=== PATIENT | male | born 1970 | race Caucasian/White ===

== ENCOUNTER 2016-09-20 15:48 | Inpatient (IN) | payer SELFPAY ==
[~2016-09-20 15:48] MED LIST: CIPR500T2 PO; Z.0.NO CURRENT MEDS
[2016-09-20 15:50] VITALS: BP 138/86; PULSE 102; RESP 24; TEMP 98.1; O2SAT 100
--- NOTE | 2016-09-20 16:18 | PD ---
Physical Exam Date Seen by Provider: Sep 20, 2016 Time Seen by Provider: 16:06 Narrative 45 y/o male with [address] with Right Sided Tonsillar Abscess refered here due to worsening symptoms. Patient having Difficulty speaking and handling his own secretions. Patient sent straight back to [facility] Bed. Data Data Last Documented VS Vital Signs Date Time Temp Pulse Resp B/P Pulse Ox O2 Delivery O2 Flow Rate FiO2 09/20/16 15:50 98.1 102 24 138/86 100 MDM Medical Record Reviewed: Yes Supervised Visit with SAMANTHA: Yes Condition: Stable Micha Bo Sep 20, 2016 16:18
[2016-09-20] MEDS ORDERED: ONDANSETRON HCL 4 MG/2 ML VIAL IVP ONE (16:45)
[2016-09-20] MEDS ORDERED: AMPICILLIN-SULBACTAM INJ 3 GM in SODIUM CHLORIDE 0.9% INJ 100 ML IV ONE (16:45)
[2016-09-20] MEDS ORDERED: SODIUM CHLORIDE 0.9% FLUSH 10 ML FLUSH IV FLUSH PRN ×2 (16:45→21:15)
[2016-09-20] MEDS ORDERED: MORPHINE SULFATE 4 MG/ML INJ IV PUSH ONE ×2 (16:45→19:00)
[2016-09-20] MEDS ORDERED: SODIUM CHLOR 0.9% 1000 ML INJ 1,000 ML IV SCH (16:45)
--- NOTE | 2016-09-20 17:05 | PD ---
HPI Chief Complaint: Oral / Dental Pain or Problem Time Seen by Provider: 17:00 Travel History International Travel<30 days: No Contact w/Intl Traveler<30days: No Traveled to known affect area: No History of Present Illness HPI Patient comes in complaining of sharp stabbing throat pain ongoing for 5 days more the right than left. Denies any radiation of pain. Pain is worse with swallowing. Denies any nausea, vomiting, chest pain, shortness breath, headache , ear pain, or being around anyone else with similar. Patient states he occasionally has issues with his tonsil swelling on him, but usually not this bad. Patient is been taking ibuprofen for symptom relief. Patient feels symptoms have been getting worse. Patient denies seeing anyone else for this. [facility] Past Medical History Asthma: Yes Kidney Stones: Yes Influenza Vaccination: No Past Surgical History Surgical History: No Previous Surgery Social History Alcohol Use: No Tobacco Use: No Substance Use: No Allergies-Medications (Allergen,Severity, Reaction): Coded Allergies: No Known Allergies (Unverified , 09/20/16) Reported Meds & Prescriptions Reported Meds & Active Scripts Active No Active Prescriptions or Reported Medications Review of Systems Except as stated in HPI: all other systems reviewed are Neg Physical Exam Narrative GENERAL: Well-developed, well nourished, in no acute distress, and non-ill appearing. SKIN: Focused skin assessment warm and dry. HEAD: Atraumatic. Normocephalic. EYES: Pupils equal and round. EOMI. No scleral icterus. No injection or drainage. ENT: No nasal bleeding or discharge. Mucous membranes pink and moist. Voice is muffled. Patient's able swallow saliva. Right tonsil is swollen greater than the left. Uvula is deviated to the left. There is no drooling. Tympanic membranes are pearly delgado bilaterally. NECK: Trachea midline. Cervical lymphadenopathy noted. Supple. No nuclear rigidity. CARDIOVASCULAR: Regular rate and rhythm. No murmur appreciated. RESPIRATORY: No accessory muscle use. No respiratory distress. Clear to auscultation. Breath sounds equal bilaterally. MUSCULOSKELETAL: No obvious deformities. No clubbing. No cyanosis. No edema. Full range of motion. NEUROLOGICAL: Awake and alert. No obvious cranial nerve deficits. Motor grossly within normal limits. Normal speech. PSYCHIATRIC: Appropriate mood and affect; insight and judgment normal. Data Data Last Documented VS Vital Signs Date Time Temp Pulse Resp B/P Pulse Ox O2 Delivery O2 Flow Rate FiO2 09/20/16 19:23 89 20 191/85 98 Room Air 09/20/16 15:50 98.1 Orders Basic Metabolic Panel (Bmp) (09/20/16 16:45) Complete Blood Count With Diff (09/20/16 16:45) Prothrombin Time / Inr (Pt) (09/20/16 16:45) Act Partial Throm Time (Ptt) (09/20/16 16:45) Iv Access Insert/Monitor (09/20/16 16:45) Ecg Monitoring (09/20/16 16:45) Oximetry (09/20/16 16:45) Morphine Inj (Morphine Inj) (09/20/16 16:45) Ondansetron Inj (Zofran Inj) (09/20/16 16:45) Ampicillin-Sulbactam Inj (Unasyn Inj) (09/20/16 16:45) Sodium Chlor 0.9% 1000 Ml Inj (Ns 1000 M (09/20/16 16:45) Sodium Chloride 0.9% Flush (Ns Flush) (09/20/16 16:45) Ct Soft Tiss Neck W Iv Cont (09/20/16 ) Iohexol 350 Inj (Omnipaque 350 Inj) (09/20/16 17:20) Dexamethasone Inj (Decadron Inj) (09/20/16 19:00) Morphine Inj (Morphine Inj) (09/20/16 19:00) Admit Order (Ed Use Only) (09/20/16 21:06) Consult Ent (09/20/16 ) Place In Observation (09/20/16 ) Vital Signs (Adult) Q4H (09/20/16 21:05) Activity Oob Ad Debra (09/20/16 21:05) Stockroom Supervisor / Telemetry .CONTINUOUS (09/20/16 21:05) Diet Clear Liquid (09/21/16 Breakfast) Sodium Chloride 0.9% Flush (Ns Flush) (09/20/16 21:15) Sodium Chloride 0.9% Flush (Ns Flush) (09/21/16 09:00) Basic Metabolic Panel (Bmp) (09/21/16 06:00) Creatine Kinase (Cpk) (09/20/16 21:05) Creatine Kinase (Cpk) (09/21/16 03:05) Case Management Consult (09/20/16 21:05) Naloxone Inj (Narcan Inj) (09/20/16 21:15) Clindamycin Inj (Cleocin Inj) (09/20/16 22:00) Lactobacillus Acidophilus (Lactinex) (09/21/16 09:00) Ampicillin-Sulbactam Inj (Unasyn Inj) (09/20/16 23:00) Labs Laboratory Tests Test 09/20/16 09/20/16 18:25 19:10 White Blood Count 18.2 TH/MM3 Red Blood Count 5.32 MIL/MM3 Hemoglobin 15.7 GM/DL Hematocrit 44.6 % Mean Corpuscular Volume 83.8 FL Mean Corpuscular Hemoglobin 29.5 PG Mean Corpuscular Hemoglobin 35.2 % Concent Red Cell Distribution Width 13.2 % Platelet Count 417 TH/MM3 Mean Platelet Volume 6.8 FL Neutrophils (%) (Auto) 71.5 % Lymphocytes (%) (Auto) 13.7 % Monocytes (%) (Auto) 13.0 % Eosinophils (%) (Auto) 1.1 % Basophils (%) (Auto) 0.7 % Neutrophils # (Auto) 13.0 TH/MM3 Lymphocytes # (Auto) 2.5 TH/MM3 Monocytes # (Auto) 2.4 TH/MM3 Eosinophils # (Auto) 0.2 TH/MM3 Basophils # (Auto) 0.1 TH/MM3 CBC Comment AUTO DIFF Differential Total Cells 100 Counted Neutrophils % (Manual) 73 % Lymphocytes % 13 % Monocytes % 12 % Eosinophils % 1 % Basophils % 1 % Neutrophils # (Manual) 13.3 TH/MM3 Nucleated Red Blood Cells 1 /100 WBC Differential Comment FINAL DIFF MANUAL Platelet Estimate NORMAL Platelet Morphology Comment NORMAL Sodium Level 136 MEQ/L Potassium Level 4.1 MEQ/L Chloride Level 100 MEQ/L Carbon Dioxide Level 23.9 MEQ/L Anion Gap 12 MEQ/L Blood Urea Nitrogen 16 MG/DL Creatinine 1.07 MG/DL Estimat Glomerular Filtration 75 ML/MIN Rate Random Glucose 71 MG/DL Calcium Level 9.4 MG/DL Prothrombin Time 11.3 SEC Prothromb Time International 1.0 RATIO Ratio Activated Partial 30.8 SEC Thromboplast Time MDM Medical Decision Making Medical Screen Exam Complete: Yes Emergency Medical Condition: Yes Interpretation(s) CT soft tissue neck read by the radiologist: 1. Extensive soft tissue swelling and inflammation involving the right side of the nasopharynx, oropharynx and hypopharyngeal soft tissues. 2. Enlarged tonsils with suspected developing abscess beneath the right tonsil. 3. Bilateral internal jugular lymphadenopathy. 4. Considering the patient's age close clinical followup to exclude malignancy is recommended. Differential Diagnosis Peritonsillar abscess, peritonsillar cellulitis, retropharyngeal abscess, other Narrative Course Patient was seen and examined. IV was established and placed on cardiac telemetry. Initial laboratory and radiological studies were ordered and reviewed. Patient was given a dose of Unasyn IV, IV Zofran, IV morphine, and IV Decadron. Discussed all findings and plan of care with Dr. Adames, who is in agreement with plan of care and disposition. Discussed all findings and plan care of patient, who was agreeable for admission. All questions were answered. Discussed patient with ENT who felt if the patient has no leukocytosis showed be safe for outpatient follow-up. However secondary to leukocytosis patient be admitted for early peritonsillar abscess. Discussed patient with hospitalist who is agreeable to admit the patient. Patient remained stable throughout ED course. Physician Communication Physician Communication [address] Thomas, ENT on-call, who recommends if there is no leukocytosis this is likely not a peritonsillar abscess and can follow-up with his office tomorrow. However, if patient is admitted he can be consult by hospitalist. [id number] Abernathy, who is agreeable to admit the patient. Diagnosis Primary Impression: Peritonsillar abscess Additional Impression: Lymphadenopathy Admitting Information Admitting Physician Requests: Observation Scripts No Active Prescriptions or Reported Meds Condition: Stable Jim Thomas Sep 20, 2016 17:05
[2016-09-20] MEDS ORDERED: IOHEXOL 350 MG/ML 10 ML VIAL (for RAD DIAG) IV ONE (17:20)
[2016-09-20] MEDS ORDERED: DEXAMETHASONE SOD PHOS 4 MG/ML VIAL IV PUSH ONE (19:00)
--- NOTE | 2016-09-20 19:01 | RADRPT ---
EXAM DATE/TIME: 09/20/2016 17:12 [facility] COMPARISON: No previous studies available for comparison. INDICATIONS : Oral abscess, difficulty swallowing. IV CONTRAST: 86 cc Omnipaque 350 (iohexol) IV RADIATION DOSE: 19.46 CTDIvol (mGy) MEDICAL HISTORY : asthma SURGICAL HISTORY : None. ENCOUNTER: Initial ACUITY: 1 week PAIN SCALE: 10/10 LOCATION: face TECHNIQUE: Volumetric scanning of the neck was performed. Using automated exposure control and adjustment of th e mA and/or kV according to patient size, radiation dose was kept as low as reasonably achievable to obtain optimal diagnostic quality images. DICOM format image data is available electronically for r eview and comparison. FINDINGS: Significant right sided nasopharyngeal, oropharyngeal and tonsillar soft tissue swelling is noted. A 1.9 cm poorly defined radiolucency is identified deep to the right tonsil. The soft tissue swelling extends into the right hypopharyngeal region. The right supraglottic soft ti ssues are thickened and the right piriform sinus has been obliterated. Enlarged lymph nodes are seen bilaterally in the internal jugular chains with the largest nodes noted superior to the hyoid bone. The lymph nodes range in size up to 2.2 cm. The right submandibular gland appears mildly enlarged. Laryngeal structures are otherwise intact. Several ethmoid air cells are opacified. Orbits are intact. There is no evidence of intracranial abnormality. The prevertebral soft tissues are unremarkable. CONCLUSION: 1. Extensive soft tissue swelling and inflammation involving the right side of the nasopharynx, oroph arynx and hypopharyngeal soft tissues. 2. Enlarged tonsils with suspected developing abscess beneath the right tonsil. 3. Bilateral internal jugular lymphadenopathy. 4. Considering the patient's age close clinical followup to exclude malignancy is recommended. Sigifredo Florence MD on September 20, 2016 at 18:50 Board Certified Radiologist. This report was verified electronically.
[2016-09-20 19:05] LABS: BICARBONATE 23.9 MEQ/L (21.0-32.0)
[2016-09-20 19:06] LABS: POTASSIUM 4.1 MEQ/L (3.5-5.1)
[2016-09-20 19:23] VITALS: BP 191/85; PULSE 89; RESP 20; O2SAT 98
[2016-09-20 19:39] LABS: BASOPHIL # 0.1 TH/MM3 (0-0.2); BASOPHIL % 0.7 % (0.0-2.0); EOSINOPHIL # 0.2 TH/MM3 (0-0.4); EOSINOPHIL % 1.1 % (0.0-4.0); HEMATOCRIT 44.6 % (39.0-51.0); LYMPH % 13.7 % (9.0-44.0); LYMPHOCYTE # 2.5 TH/MM3 (1.0-4.8); MEAN CELL VOLUME 83.8 FL (80.0-100.0); MEAN CORPUSCULAR HEMOGLOBIN 29.5 PG (27.0-34.0); MEAN CORPUSCULAR HGB CONC 35.2 % (32.0-36.0); NEUT % 71.5 % (16.0-70.0); PLATELET COUNT 417 TH/MM3 (150-450); RED BLOOD COUNT 5.32 MIL/MM3 (4.50-5.90); RED CELL DISTRIBUTION WIDTH 13.2 % (11.6-17.2); WHITE BLOOD COUNT 18.2 TH/MM3 (4.0-11.0)
[2016-09-20 19:41] LABS: HEMO FLAGS AUTO DIFF
[2016-09-20 19:51] LABS: APTT (PATIENT) 30.8 SEC (24.3-30.1); PROTHROMBIN TIME - PATIENT 11.3 SEC (9.8-11.6)
[2016-09-20 20:04] LABS: BASOPHILS 1 % (0-2); CORRECTED NUCLEATED RBC 1 /100 WBC (0-0); EOSINOPHILS 1 % (0-4); NEUTROPHIL # MANUAL DIFF 13.3 TH/MM3 (1.8-7.7); PLATELET ESTIMATE SMEAR NORMAL (NORMAL); PLATELET MORPHOLOGY NORMAL (NORMAL); POLYS (SEG NEUTROPHILS) 73 % (16-70); SCAN/DIFF FINAL DIFF MANUAL; WBC DIFF SAMPLE 100
[2016-09-20] MEDS ORDERED: NALOXONE HCL 0.4 MG/ML AMP IV PRN (21:15)
[2016-09-20] MEDS: CLINDAMYCIN INJ 900 MG in SODIUM CHLORIDE 0.9% INJ 100 ML IV SCH (21:45)
[2016-09-20 22:04] VITALS: BP 152/83; PULSE 91; RESP 18; O2SAT 98
[2016-09-20] MEDS: AMPICILLIN-SULBACTAM INJ 3 GM in SODIUM CHLORIDE 0.9% INJ 100 ML IV SCH (22:24)
[2016-09-20 23:58] VITALS: PULSE 91
[2016-09-21] VITALS (10 sets, daily range): BP systolic 129–180; BP diastolic 75–99; PULSE 83–112; RESP 16–20; TEMP 95.7–98.1; O2SAT 95–97
[2016-09-21] MEDS ORDERED: MORPHINE SULFATE 4 MG/ML INJ IV PUSH PRN (01:00)
[2016-09-21] MEDS: AMPICILLIN-SULBACTAM INJ 3 GM in SODIUM CHLORIDE 0.9% INJ 100 ML IV SCH ×4 (04:01→21:29)
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
[2016-09-21] MEDS ORDERED: RESP: ALBUTEROL 2.5 MG/3 ML NEB (PRN) NEB (05:00)
[2016-09-21] MEDS ORDERED: DEXAMETHASONE SOD PHOS 4 MG/ML VIAL IV PUSH SCH (06:00)
[2016-09-21] MEDS: CLINDAMYCIN INJ 900 MG in SODIUM CHLORIDE 0.9% INJ 100 ML IV SCH ×4 (06:00→21:29)
[2016-09-21 08:15] LABS: BICARBONATE 25.3 MEQ/L (21.0-32.0); POTASSIUM 4.1 MEQ/L (3.5-5.1)
[2016-09-21] MEDS: SODIUM CHLORIDE 0.9% FLUSH 10 ML FLUSH IV FLUSH SCH ×2 (09:16→21:29)
[2016-09-21] MEDS: PANTOPRAZOLE SOD 40 MG DELAYED RELEASE TAB PO SCH (09:16)
[2016-09-21] MEDS: LACTOBACILLUS ACIDOPHILUS TAB PO SCH ×3 (09:16→18:36)
[2016-09-21] MEDS: SILVER SULFADIAZINE 1% CR 50 GM JAR TOPICAL SCH ×2 (09:16→21:00)
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
[2016-09-21] MEDS: DEXAMETHASONE SOD PHOS 4 MG/ML VIAL IV PUSH SCH (21:29)
[2016-09-22] VITALS: BP 153/89; PULSE 103; RESP 18; TEMP 98; O2SAT 94
[2016-09-22 04:00] VITALS: BP 139/91; PULSE 86; RESP 18; TEMP 98.2; O2SAT 95
[2016-09-22] MEDS: AMPICILLIN-SULBACTAM INJ 3 GM in SODIUM CHLORIDE 0.9% INJ 100 ML IV SCH ×2 (05:47→09:45)
[2016-09-22] MEDS: CLINDAMYCIN INJ 900 MG in SODIUM CHLORIDE 0.9% INJ 100 ML IV SCH ×2 (05:47→09:51)
[2016-09-22 08:00] VITALS: BP 136/71; PULSE 77; RESP 17; TEMP 96.5; O2SAT 92
[2016-09-22] MEDS ORDERED: amLODIPine BESYLATE 5 MG TAB PO SCH (09:00)
[2016-09-22] MEDS: SODIUM CHLORIDE 0.9% FLUSH 10 ML FLUSH IV FLUSH SCH (09:00)
[2016-09-22] MEDS: DEXAMETHASONE SOD PHOS 4 MG/ML VIAL IV PUSH SCH (09:47)
[2016-09-22] MEDS: PANTOPRAZOLE SOD 40 MG DELAYED RELEASE TAB PO SCH (09:47)
[2016-09-22] MEDS: LACTOBACILLUS ACIDOPHILUS TAB PO SCH (09:47)
[2016-09-22] MEDS ORDERED: MEDR4PAK PO (10:30)
[2016-09-22] MEDS ORDERED: AUGM875T3 PO (10:30)
[2016-09-22] MEDS ORDERED: AMLO5 PO (10:30)
--- NOTE | 2016-09-22 10:36 | HHI.PR ---
Subjective Remarks Follow up for peritonsilar abscess. Patient is doing much better, feels that he is back to his baseline. Denies any chest pain, SOB, fever, chills. Able to tolerate diet well. Objective Vitals Vital Signs Date Time Temp Pulse Resp B/P Pulse Ox O2 Delivery O2 Flow Rate FiO2 09/22/16 08:00 96.5 77 17 136/71 92 09/22/16 04:00 98.2 86 18 139/91 95 09/22/16 00:00 98.0 103 18 153/89 94 09/21/16 18:15 98.1 101 18 141/86 95 09/21/16 16:52 95.7 112 18 129/75 96 09/21/16 16:01 109 09/21/16 13:18 165/97 09/21/16 12:25 91 09/21/16 12:11 96.7 88 16 180/97 96 Result Diagram: 09/20/16 1825 09/21/16 0550 Imaging Last Impressions Neck CT 09/20/16 0000 Signed Impressions: Service Date/Time: Tuesday, September 20, 2016 17:12 - CONCLUSION: 1. Extensive soft tissue swelling and inflammation involving the right side of the nasopharynx, oropharynx and hypopharyngeal soft tissues. 2. Enlarged tonsils with suspected developing abscess beneath the right tonsil. 3. Bilateral internal jugular lymphadenopathy. 4. Considering the patient's age close clinical followup to exclude malignancy is recommended. Sigifredo Florence MD Objective Remarks GENERAL: Alert, Oriented x 3, NAD. SKIN: Warm and dry. HEAD: Normocephalic. EYES: No scleral icterus. No injection or drainage. NECK: Supple, trachea midline. No JVD or lymphadenopathy. Large tonsils kun on the right. No appreciable exudates. Airway intact. CARDIOVASCULAR: Regular rate and rhythm without murmurs, gallops, or rubs. RESPIRATORY: Breath sounds equal bilaterally. No accessory muscle use. GASTROINTESTINAL: Abdomen soft, non-tender, nondistended. MUSCULOSKELETAL: No cyanosis, or edema. BACK: Nontender without obvious deformity. No CVA tenderness. Procedures None. A/P Problem List: (1) Peritonsillar abscess ICD Code: J36 Status: Acute (2) HTN (hypertension) ICD Code: I10 Status: Acute Assessment and Plan 45 y/o male who presented to ED for evaluation of suspected right tonsillar abscess: Peritonsillar abscess with sepsis: WBC 18.2, Tachycardia. - CT neck with IV contrast shows extensive soft tissue swelling and inflammation involving the right side of the nasopharynx, oropharynx and hypopharyngeal soft tissues. Enlarged tonsils with suspected developing abscess beneath the right tonsil. - Images reviewed by me on 09/22/2016. - Patient is back to baseline, no airway compromise, tolerating food well. - Patient received Decadron. He was also on Clindamycin IV and Unasyn IV. Both IV abx is likely not necessary. - Since patient is back to baseline, he has received IV abx in the hospital, remains afebrile, we will discharge him on Augmentin 875/125 Q12hrs for 14 days. - Please note that ENT note was not available at the time of discharge. Later , I reviewed ENT note, recommends clindamycin. - Augmentin should have excellent anaerobic coverage as well. Reviewed medications and duration on [facility] - Patient was given a medrol dose pack as well, to be used ONLY if symptoms worsen and in such event, patient is advised to seek medical attention. Hypertension - Continue Amlodipine 5mg Qday. History of Asthma - no recent exacerbations - Albuterol nebulizer q4h PRN wheezing Full code. Discharge patient to home Condition on discharge: Improved Regular Diet as tolerated Ad Debra activity Rx written: - Amlodipine 5mg Qday - Augmentin 875-125mg BID #28 - Medrol dosepak PRN Follow-up with primary care physician within one week and ENT within 2-3 days. Lopez Tuttle DO Sep 22, 2016 10:36
--- NOTE | 2016-09-22 13:16 | MB ---
cc: DANYEL JOHNSON MD DATE OF CONSULTATION: September 21, 2016 CHIEF COMPLAINT Sore throat. HISTORY OF PRESENT ILLNESS This is a 45-year-old male with chronically enlarged tonsils and recurrent chronic tonsillitis multiple times, however, recently he started suffering from some flu-like symptoms starting last Tuesday. He reported that his tonsils were swollen, it got a little bit better, however, by Tuesday his pain was significant and he ended up going to a Urgent Care, was given a small dose of antibiotics and then further evaluation was recommended in the emergency room. At the emergency room he reported significant pain with swallowing. He was noted on CT scan to have early formation of a possible right peritonsillar phlegmon with significant elevated white count. The patient reports this morning after getting antibiotics and steroids overnight he feels much improved, was able to swallow and is requesting food. PAST MEDICAL HISTORY Past medical history is significant for: 1. Hypertension. 2. Asthma. 3. Nephrolithiasis. PAST SURGICAL HISTORY No past surgical history. MEDICATION The only medication he takes currently is Ibuprofen as an outpatient. He is employed as a vp construction. CURRENT INPATIENT MEDICATION Please see EMR. SOCIAL HISTORY Smoked tobacco for approximately 15 pack-years, quit 2 years ago. Has occasional ethanol use. He was a drug user in the past with marijuana and cocaine but reportedly quit sometime in his 30s. PHYSICAL EXAMINATION GENERAL: The patient is alert and oriented x3, in no acute distress. VITAL SIGNS: Afebrile. Vital signs are stable. HEENT: Exam reveals bilateral tonsillar hypertrophy with exudate bilaterally. No uvula shift. There is no significant purulence noted from either tonsil. NECK: Reveals mild adenopathy bilaterally that is tender. RESPIRATORY: Clear to auscultation. CARDIOVASCULAR: Regular rate and rhythm. No murmurs, gallops or rubs. LABORATORY DATA White count reviewed from last night, no current one noted, was 18.2 on the labs. IMAGING STUDIES His imaging showed significant right-sided nasopharyngeal, oropharyngeal, hypopharyngeal swelling with early right peritonsillar phlegmon noted and bilateral adenopathy. ASSESSMENT/PLAN Patient with significant acute tonsillitis, improving with IV antibiotics and steroids. At this time no significant abscess is noted requiring intervention. RECOMMENDATIONS Continue clindamycin and Unasyn as ordered as well as the IV Decadron. The patient will likely be able to be discharged home tomorrow morning, recommended outpatient follow-up with ENT as well as 10-day course of p.o. clindamycin at discharge. Otherwise he can follow up with me at my office in 7-10 days. Danyel Johnson AT/ABIL /5:27 PM /1:00 PM
== END 2016-09-22 12:16 | disposition home or self-care (01) | DRG 872 ==
LOC: NEPE 15:48 → NEDA 21:09 → OBSVTOIN 22:12 → NEPFCDU 23:01 → N07B 09-21 18:16
PROVIDERS: ADMIT Hospitalist; ATTEND Hospitalist
DX: A41.9 Sepsis, unspecified organism (principal); I10 Essential (primary) hypertension; R13.10 Dysphagia, unspecified; J36 Peritonsillar abscess; J45.909 Unspecified asthma, uncomplicated; T23.122A Burn of first degree of single left finger (nail) except thumb, initial encounter; R59.0 Localized enlarged lymph nodes; Z87.891 Personal history of nicotine dependence; X17.XXXA Contact with hot engines, machinery and tools, initial encounter; R00.0 Tachycardia, unspecified
CPT/HCPCS: 70491; 80048; 82550; 85007; 85027; 85610; 85730; 96365; 96366; 96375; 96376; J0295; J1100; J2270; J2405; J7030; Q9967